=== PATIENT | female | born 1985 | race Caucasian/White ===

== ENCOUNTER → 2021-05-13 14:15 | Outpatient (BNVA) | payer SELFPAY | PROVIDERS: Family Provider Family Medicine; PCP Family Medicine; Visit Provider Obstetrics & Gynecology | DX: N92.6 Irregular menstruation, unspecified (principal) | CPT/HCPCS: 83036; 83525; 84443 ==

== ENCOUNTER → 2021-05-24 08:14 | Outpatient (BNVA) | payer SELFPAY | PROVIDERS: Family Provider Family Medicine; PCP Family Medicine; Visit Provider Obstetrics & Gynecology | DX: N97.9 Female infertility, unspecified (principal); N83.202 Unspecified ovarian cyst, left side; N83.201 Unspecified ovarian cyst, right side; N70.11 Chronic salpingitis | CPT/HCPCS: 76830 ==

== ENCOUNTER → 2021-05-31 13:02 | Outpatient (BNVA) | payer SELFPAY | PROVIDERS: Family Provider Family Medicine; PCP Family Medicine; Visit Provider Obstetrics & Gynecology | DX: N92.6 Irregular menstruation, unspecified (principal); N70.11 Chronic salpingitis | CPT/HCPCS: 84144 ==

== ENCOUNTER 2021-06-08 10:23 | Outpatient (CLI) | payer SELFPAY ==
--- NOTE | 2021-06-08 10:30 | FL_ITS ---
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 Fluoroscopy time: 1.5 minutes. Findings: Dr. Higgins injected the contrast material into the uterine cavity. The uterine cavity had a normal configuration and there were several bubbles within the uterine cavity. The fallopian tubes fill and spill into the pelvis bilaterally. There are surgical clips in the left side of the abdomen and in th e left upper quadrant. There is a large amount of fecal material in the colon. FL/FL hysterosalpingography [id number] Impression: Normal hysterosalpingogram.
[2021-06-08] MEDS: iohexol 300 mg/mL 50 mL Btl VAGINAL (11:17)
--- NOTE | 2021-06-08 12:29 | PM.OP ---
Operative Report Date of procedure: June 08, 2021 Pre-op Diagnosis: bilateral hydrosalpinx Post-op diagnosis: same Post-op Findings: normal appearing fallopian tubes Possible polyp present in the uterus Procedure Done: hysterosalpingogram Pathology: none sent Surgeon: Unique Higgins Anesthesia: None Estimated blood loss (mL): 0 IV fluids (mL): 0 Urine output (mL): 0 Complications: none Findings: normal appearing uterus and fallopian tubes Condition: stable Disposition: other (home after procedure) Brief History: The patient saw me for inability to become . She had an ultrasound which showed bilateral hydrosalpinx. The HSG was scheduled to evaluate the patient's fallopian tubes Procedure: The patient was placed in the dorsal lithotomy position on the x-ray table. A speculum was placed into the vagina and the cervix identified. The cervix was cleaned with Betadine. A single-tooth tenaculum was placed on the anterior lip of the cervix. The acorn uterine manipulator was placed through the cervix into the uterus. 25 cc of contrast were drawn up and pushed through the manipulator and into the uterus. Pictures were taken throughout the procedure. The contour of the uterus was normal as well as bilateral tubes were patent. The manipulator was removed and final pictures were taken. The tenaculum and the speculum were removed. The patient tolerated the procedure well. The count was correct post procedure. The patient was discharged home in stable condition.
--- NOTE | 2021-06-08 12:30 | W.PM.OPSUD ---
Surgery/Procedure H&P Update DATE OF PROCEDURE: June 08, 2021 DATE H&P PERFORMED: 05/27/21 H&P UPDATE INFORMATION: I have reviewed H&P completed within last 30 days, I have examined patient prior to procedure and No changes to prior documentation
== END 2021-06-08 10:24 | disposition home or self-care (01) ==
LOC: RAD 10:26
PROVIDERS: PCP Family Medicine; Visit Provider Obstetrics & Gynecology
DX: N70.11 Chronic salpingitis (principal)
CPT/HCPCS: 74740

== ENCOUNTER 2022-03-10 07:30 | Outpatient (CLI) | payer SELFPAY ==
[2022-03-10 09:01] LABS: Progesterone 42.69 ng/mL
== END 2022-03-10 07:31 | disposition home or self-care (01) ==
PROVIDERS: PCP Family Medicine; Visit Provider Obstetrics & Gynecology Reproductive Endocrinology
DX: N91.2 Amenorrhea, unspecified (principal)
CPT/HCPCS: 36415; 84144; 84702

== ENCOUNTER 2022-03-13 07:49 | Outpatient (CLI) | payer SELFPAY ==
[2022-03-13 09:02] LABS: Progesterone 38.91 ng/mL
== END 2022-03-13 07:50 | disposition home or self-care (01) ==
LOC: LAB 07:51
PROVIDERS: PCP Family Medicine; Visit Provider Obstetrics & Gynecology Reproductive Endocrinology
DX: N91.2 Amenorrhea, unspecified (principal)
CPT/HCPCS: 36415; 84144; 84702

== ENCOUNTER 2023-01-19 07:55 | Inpatient (IN) | payer MEDICAID, SELFPAY ==
[2023-01-19] VITALS (10 sets, daily range): BP systolic 106–145; BP diastolic 63–89; PULSE 91–110; RESP 16–18; TEMP 36.6–37.7; O2SAT 93–100
--- NOTE | 2023-01-19 08:06 | W.ED.ABDPA2 ---
HPI - Abdominal Pain General: Chief Complaint: ER Hold Stated Complaint: abd pain Time Seen by Provider: 01/19/23 08:05 History of Present Illness: Ms. Young is a 37-year-old lady with significant past medical history of gastric sleeve/bypass presenting to the emergency department for abdominal pain with nausea, vomiting, diarrhea. Notes onset of symptoms subacute a few days ago. She felt nauseous and had vomiting and subsequently developed abdominal pain. Mostly lower abdomen with radiation to the right side. Moderate to severe intensity. Crampy in nature. Initially just had vomiting however subsequently has developed diarrhea. No hematemesis or blood in stool. No fevers. No urinary symptoms. Patient reports being and has resumed normal periods. Last period was earlier this week. Denies abnormal vaginal bleeding or discharge/pain. No other specific changes in health, exacerbating, or alleviating factors identified. Onset (ago): day(s) Pain Consistency: constant Location: Diffuse Quality: cramping Exacerbating factors: eating, vomiting and movement Relieving factors: nothing Associated Symptoms: Reports GI cramping, nausea, poor appetite and vomiting; Denies dysuria, fever(s), hematemesis and melena Review of Systems General: Reports: 10 or more systems reviewed and unremarkable except in HPI and below Const: Denies: fever(s) GI: Reports: nausea, vomiting and GI cramping; Denies: hematemesis or melena : Denies: dysuria PFSH ED PFSH: Medical History Anxiety Depression MTHFR mutation Surgical History H/O gastric bypass 2015--pt had complications with the sleeve so was converted to the bypass H/O gastric sleeve 2015 Family History Grandmother Cancer Paternal--brain Diabetes Paternal Father Diabetes Hypertension Mother Hypertension Denies family history of CAD (coronary artery disease) Clotting disorder Hyperlipidemia Chronic kidney disease (CKD) Bleeding disorder Stroke Physical Exam Const: COMMON NORMALS: alert GENERAL APPEARANCE: cooperative and well developed HENMT: COMMON NORMALS: normocephalic and atraumatic HEAD & SCALP: normocephalic and atraumatic Eye: COMMON NORMALS: conjunctivae normal CONJUNCTIVA: Yes conjunctivae normal SCLERA: sclerae normal Neck/C-Spine: COMMON NORMALS: supple GENERAL: Yes trachea midline Resp: COMMON NORMALS: clear to auscultation bilaterally EFFORT & INSPECTION: Yes able to speak in complete sentences AUSCULTATION: clear to auscultation bilaterally Cardio: COMMON NORMALS: regular rate and regular rhythm RATE: regular rate RHYTHM: regular rhythm GI: COMMON NORMALS: Soft to palpation PALPATION: Yes Soft to palpation, Yes Tenderness to palpation present (GI), No Guarding due to palpation present (GI) and No Rigid due to palpation Extremity: GENERAL: Yes normal exam except as noted and No edema Neuro: COMMON NORMALS: moves all extremities SENSORIUM/ORIENTATION: Yes alert and No Orientation impaired Psych: COMMON NORMALS: mental status grossly normal and Normal thought process present THOUGHT PROCESS: Normal thought process present Course Vital Signs: Vital signs: Vital Signs Temperature 98 F 01/21/23 07:44 Pulse Rate 71 01/21/23 07:44 Respiratory Rate 18 01/21/23 07:44 Blood Pressure 125/85 01/21/23 07:44 Pulse Oximetry 95 01/21/23 07:44 Oxygen Delivery Me thod Room Air 01/21/23 07:44 MDM - Abdominal Pain Medical Decision Making 37-year-old lady presenting with abdominal pain with nausea, vomiting, diarrhea. Uncomfortable appearing on exam though nontoxic. Abdominal tenderness without evidence of acute surgical abdomen. Labs notable for no leukocytosis, normal hemoglobin and platelet count metabolic panel without significant arrangement. Given degree of tenderness despite laboratory findings CT imaging is appropriate. There appears to be acute inflammatory process in the right lower quadrant without clear etiology though raising the question for possible acute appendicitis. General surgery consulted and came to evaluate the patient. Given imaging findings plan to admit to medicine for antibiotic treatment with general surgery as consult service. During ED course patient treated with fluids, analgesia, antiemetic, antibiotics. The results of ED evaluation were discussed with the patient including plan for admission due to requirement for level of care not available if discharged to prevent significant worsening/deterioration. Patient agreeable with plan. Discussed with hospitalist service who was agreeable to admit patient. Medical Records I reviewed the patient's medical records. Lab Data I reviewed the patient's lab results. 01/21/23 04:19 01/21/23 04:19 Labs/Radiology: Radiology Impressions Abdomen/Pelvis CT 01/19/23 08:49 IMPRESSION: 1. Acute inflammatory process in the RIGHT lower quadrant. A normal identifiable appendix is not present. There are several abnormal loops of GI tract in the RIGHT lower quadrant. Favor one of these is an abnormal appendix with possible perforation. The adjacent small bowel loops are being secondarily involved with inflammation. There is soft tissue and fat stranding extending along the RIGHT paracolic gutter. Most likely acute appendicitis. 2. No free fluid and no free air. 3. There is a small amount of inflammation involving the fundal portion of the gallbladder. Suspect this may be inflammation from the RIGHT lower quadrant process extending superiorly. Additional etiologies to consider are possible superimposed acute cholecystitis. 4. Prior gastric bypass. Laboratory Results WBC 8.7 10^3/uL (4.0-10.0) 01/19/23 08:07 RBC 4.45 10^6/uL (4.1-5.3) 01/19/23 08:07 Hgb 11.7 g/dL (11.5-15.3) 01/19/23 08:07 Hct 37.7 % (37.0-47.0) 01/19/23 08:07 MCV 84.7 fl (81-99) 01/19/23 08:07 MCH 26.3 pg (28.0-34.0) L 01/19/23 08:07 MCHC 31.0 g/dL (30.0-36.0) 01/19/23 08:07 RDW 14.1 % (12.1-15.1) 01/19/23 08:07 Plt Count 362 10^3/cmm (130-400) 01/19/23 08:07 MPV 10.6 fL (7.4-10.4) H 01/19/23 08:07 Neut % (Auto) 80.5 % 01/19/23 08:07 Lymph % (Auto) 12.0 % 01/19/23 08:07 [place] % (Auto) 6.3 % 01/19/23 08:07 Eos % (Auto) 0.5 % 01/19/23 08:07 Baso % (Auto) 0.5 % 01/19/23 08:07 Neut # (Auto) 7.02 10^3/uL (1.8-7.7) 01/19/23 08:07 Lymph # (Auto) 1.1 10^3/uL (0.8-4.8) 01/19/23 08:07 [place] # (Auto) 0.6 10^3/uL (0.2-0.9) 01/19/23 08:07 Eos # (Auto) 0.0 10^3/uL (0.0-0.8) 01/19/23 08:07 Baso # (Auto) 0.0 10^3/uL (0.0-0.1) 01/19/23 08:07 Nucleated RBC % (auto) 0 % 01/19/23 08:07 Nucleated RBCs # 0.0 /100WBC 01/19/23 08:07 Sodium 138 mmol/L (136-145) 01/19/23 08:07 Potassium 3.7 mmol/L (3.5-5.1) 01/19/23 08:07 Chloride 100 mmol/L (98-107) 01/19/23 08:07 Carbon Dioxide 25 mmol/L (22-29) 01/19/23 08:07 Anion Gap 16.7 (5-19) 01/19/23 08:07 BUN 10 mg/dL (6-20) 01/19/23 08:07 Creatinine 0.6 mg/dL (0.5-0.9) 01/19/23 08:07 GFR Calculation 113.8 mL/min (90-130) 01/19/23 08:07 Glucose 89 mg/dL (65-115) 01/19/23 08:07 Calculated Osmolality 285 mOsm/kg (285-295) 01/19/23 08:07 Calcium 8.9 mg/dL (8.5-10.5) 01/19/23 08:07 Total Bilirubin 0.4 mg/dL (0.15-1.2) 01/19/23 08:07 AST 14 U/L (0-32) 01/19/23 08:07 ALT 18 U/L (0-33) 01/19/23 08:07 Alkaline Phosphatase 69 U/L (35-105) 01/19/23 08:07 Total Protein 7.0 g/dL (6.6-8.7) 01/19/23 08:07 Albumin 3.8 g/dL (3.5-5.2) 01/19/23 08:07 Globulin 3.2 g/dL (1.3-4.6) 01/19/23 08:07 Lipase 18 U/L (13-60) 01/19/23 08:07 HCG, Qual Negative (Negative) 01/19/23 08:07 Urine Color Yellow (Yellow) 01/19/23 09:08 Urine Appearance Hazy (CLEAR) A 01/19/23 09:08 Urine pH 6.5 (5-7) 01/19/23 09:08 Ur Specific Joseph 1.010 (1.005-1.030) 01/19/23 09:08 Urine Protein Neg (Negative) 01/19/23 09:08 Urine Glucose (UA) Norm (Normal) 01/19/23 09:08 Urine Ketones 3+ (Negative) H 01/19/23 09:08 Urine Blood 3+ (Negative) H 01/19/23 09:08 Urine Nitrate Negative (Negative) 01/19/23 09:08 Urine Bilirubin 1+ (Negative) H 01/19/23 09:08 Urine Urobilinogen 4 mg/dL (Negative) H 01/19/23 09:08 Ur Leukocyte Esterase Negative (Negative) 01/19/23 09:08 Urine RBC 15-25 /hpf (0-2) H 01/19/23 09:08 Urine WBC 0-4 /hpf (0-5) H 01/19/23 09:08 Ur Squamous Epith Cells 5-10 /hpf (0-5) H 01/19/23 09:08 Amorphous Sediment Not Reportable 01/19/23 09:08 Urine Bacteria 1+ /hpf (NONE) H 01/19/23 09:08 Urine Mucus 1+ /hpf 01/19/23 09:08 Discharge Plan Discharge Patient Disposition: Admitted As Inpatient Admit Provider: Aura De Oliveira Clinical Impression: Abdominal pain Condition: Stable Discharge Diet: Advance as tolerated and Usual diet Discharge Activity: Resume usual activity Coding Level of Care Code ED Behavioral Health Therapist for Radu Henning
[2023-01-19] MEDS: morphine 4 mg/mL SDV 1 mL IVP ×3 (08:17→15:04)
[2023-01-19] MEDS: ondansetron 2 mg/ML SDV 2 mL 4 MG IVP (08:17)
[2023-01-19] MEDS: lactated ringers 1,000 ML 999 ML IV (08:18)
[2023-01-19 08:19] LABS: Basophils % 0.5 %; Eosinophils % 0.5 %; Hematocrit 37.7 % (37.0-47.0); Hemoglobin 11.7 g/dL (11.5-15.3); Lymphocytes # 1.1 10^3/uL (0.8-4.8); Mean Corpuscular Hemoglobin 26.3 pg (28.0-34.0); Mean Corpuscular Volume 84.7 fl (81-99); Mean Platelet Volume 10.6 fL (7.4-10.4); Monocytes # 0.6 10^3/uL (0.2-0.9); Monocytes % 6.3 %; Neutrophils # 7.02 10^3/uL (1.8-7.7); Neutrophils % 80.5 %; Nucleated Red Blood Cells % 0 %; Platelet Count 362 10^3/cmm (130-400); Red Blood Count 4.45 10^6/uL (4.1-5.3); Red Cell Distribution Width 14.1 % (12.1-15.1); White Blood Count 8.7 10^3/uL (4.0-10.0)
[2023-01-19 08:29] LABS: Alanine Aminotransferase 18 U/L (0-33); Albumin Level 3.8 g/dL (3.5-5.2); Alkaline Phosphatase 69 U/L (35-105); Anion Gap 16.7 (5-19); Aspartate Amino Transferase 14 U/L (0-32); Blood Urea Nitrogen 10 mg/dL (6-20); Calcium 8.9 mg/dL (8.5-10.5); Carbon Dioxide 25 mmol/L (22-29); Chloride 100 mmol/L (98-107); Globulin 3.2 g/dL (1.3-4.6); Glomerular Filtration Rate 113.8 mL/min (90-130); Glucose 89 mg/dL (65-115); Lipase 18 U/L (13-60); Osmolality Calculated 285 mOsm/kg (285-295); Potassium 3.7 mmol/L (3.5-5.1); Sodium 138 mmol/L (136-145); Total Bilirubin 0.4 mg/dL (0.15-1.2)
[2023-01-19 08:33] LABS: HCG, Serum Qual Negative (Negative)
--- NOTE | 2023-01-19 08:49 | CT_ITS ---
WS: [id number] CT ABDOMEN AND PELVIS WITH CONTRAST HISTORY: generalized abd pain, worse RLQ TECHNIQUE: Imaging performed of the abdomen and pelvis with IV contrast. Single phase imaging of the abdomen. Coronal and sagittal reformats are submitted. All CT scans at [facility] use at [address] one of these dose optimization techniques: automated exposure control; mA and/or kV adjustment per patient size (includes targeted exams where dose is matched to clinical indication); or iterative re construction. IV CONTRAST: Omnipaque 350; 100 mL IV. Oral contrast: No DLP: 772.67 mGy.cm COMPARISON: None available. Lower thorax: Lung bases are clear. Heart is normal size. No hiatal hernia. Liver/biliary system: Mild hepatic steatosis and hepatomegaly. No bile duct dilatation. No mass. Gallbladder: Mildly hydropic gallbladder. There is some very mild fat stranding along the fundal port ion of the gallbladder. There is a tiny calcification within the wall of the gallbladder. No pancreat ic duct dilatation. Pancreas: Normal size pancreas and pancreatic duct. No adjacent inflammation. Spleen: Normal size spleen. No mass or infarct. Adrenal glands: Normal. Right kidney: Normal. Left kidney: Normal. Aorta: Normal. Lymphadenopathy: None. Free fluid: None. GI tract: Status post gastric bypass. No small bowel obstruction. Acute inflammatory process in the R IGHT lower quadrant. There are several abnormal loops of GI tract in the RIGHT lower quadrant. There is wall thickening with moderate adjacent inflammation and narrowing of the lumen. The appendix is no t identified as a normal structure. There is one loop of GI tract which I believe is an abnormal appe ndix and possible perforation. There is a small interloop collection measuring 1.7 cm which may be a small abscess or phlegmonous. The adjacent distal small bowel loops are also inflamed. Mesenteric inf lammation extends superiorly and I believe is contiguous with the fat inferior to the gallbladder. Th ere is no free fluid. Abdominal wall: Unremarkable abdominal wall. No hernia. Pelvis: No free fluid identified. Bones: Unremarkable. CT/CT abdomen pelvis w con* [id number] IMPRESSION: 1. Acute inflammatory process in the RIGHT lower quadrant. A normal identifiab le appendix is not present. There are several abnormal loops of GI tract in the RIGHT lower quadrant. Favor one of these is an abnormal appendix with possible perforation. The adjacent small bowel loops are being secondarily involved wit h inflammation. There is soft tissue and fat stranding extending along the RIGH T paracolic gutter. Most likely acute appendicitis. 2. No free fluid and no free air. 3. There is a small amount of inflammation involving the fundal portion of the gallbladder. Suspect this may be inflammation from the RIGHT lower quadrant pr ocess extending superiorly. Additional etiologies to consider are possible supe rimposed acute cholecystitis. 4. Prior gastric bypass.
[2023-01-19] MEDS: iohexol 350 mg/mL 500 mL Btl (per mL) IV (09:30)
[2023-01-19 09:33] LABS: Urine Appearance Hazy (CLEAR); Urine Color Yellow (Yellow)
[2023-01-19 09:34] LABS: Add Urine Culture? Yes; Add Urine Microscopic? YES; Bacteria Urine 1+ /hpf; Bilirubin Urine 1+ (Negative); Blood Urine 3+ (Negative); Glucose Urine UA Norm (Normal); Ketones Urine 3+ (Negative); Leukocyte Esterase Urine Negative (Negative); Mucus Urine 1+ /hpf; Nitrate Urine Negative (Negative); Protein Urine Neg (Negative); RBC Urine 15-25 /hpf (0-2); Urobilinogen Urine 4 mg/dL (Negative); WBC Urine 0-4 /hpf (0-5); pH Urine 6.5 (5-7)
[2023-01-19] MEDS: piperacillin-tazobactam 4.5 GM in sodium chloride 0.9% (plus) 50 ML IV (10:23)
[2023-01-19] MEDS: sodium chloride 0.9% 1,000 ML 100 ML IV ×2 (15:04→23:31)
[2023-01-19 17:47] LABS: Lactic Sepsis W/Reflex 0.5 mmol/L (0.5-2.2)
--- NOTE | 2023-01-19 18:15 | PM.CONSULT ---
Providers/Reason For Consult Consulting Physician/Specialty*: General Surgery Reason for Consult*: Abdominal pain Attending Physician: Aura De Oliveira MD Primary Care Provider: Chandana Alvarez MD History of Present Illness History of Present Illness Tayler Young is a 37 year old female who developed significant abdominal pain last weekend, which gradually stabilized but persistent. She indicates pain in both lower and right upper quadrants, and has had some diarrhea but no hematochezia or melena. She has previous history of laparoscopic gastric bypass four years ago, and has achieved reasonable weight loss from this procedure. Review of Systems General: Reports: 10 or more systems reviewed and unremarkable except in HPI and below Const: Reports: change in weight; Denies: chills Eyes: Denies: yellow eyes Card: Denies: chest pain, lightheadedness or syncope Resp: Denies: dyspnea GI: Reports: abdominal pain, nausea and diarrhea; Denies: vomiting or melena : Denies: flank pain or hematuria Neuro: Denies: headache(s) Medications/Allergies Home Medications Medication Instructions Recorded Confirmed Last Taken Type prenat.vits,anu,kbb-zglm-vqjai 1 tab PO DAILY 05/13/21 01/19/23 01/18/23 History bupropion HCl 300 mg 24 hr tablet, 300 mg PO DAILY 01/19/23 01/19/23 01/18/23 History extended release escitalopram oxalate 10 mg tablet 10 mg PO DAILY 01/19/23 01/19/23 01/18/23 History norgestimate-ethinyl estradiol 1 tab PO DAILY 01/19/23 01/19/23 01/18/23 History 0.18 mg/0.215mg/0.25mg-35 mcg(28)tablet (Tri-Sprintec (28)) ondansetron 4 mg disintegrating 8 mg PO TID PRN Nausea And Vomiting 01/19/23 01/19/23 Unknown History tablet Allergies Allergy/AdvReac Type Severity Reaction Status Date / Time No Known Allergies Allergy Verified 01/19/23 08:04 Current Medications Generic Name Dose Route Start Last Admin Trade Name Freq PRN Reason Stop Dose Admin Sodium Chloride 1,000 mls @ 100 mls/hr 01/19/23 12:30 01/19/23 15:04 Sodium Chloride 0.9% IV 100 mls/hr .Q10H SAMIRA Administration PFSH Acute PFSH: Medical History Anxiety Depression MTHFR mutation Surgical History H/O gastric bypass 2015--pt had complications with the sleeve so was converted to the bypass H/O gastric sleeve 2015 Family History Grandmother Cancer Paternal--brain Diabetes Paternal Father Diabetes Hypertension Mother Hypertension Denies family history of CAD (coronary artery disease) Clotting disorder Hyperlipidemia Chronic kidney disease (CKD) Bleeding disorder Stroke Vitals/I&O/Wt Last Vital Signs Temp 98 F 01/19/23 16:45 Pulse 93 01/19/23 16:45 Resp 18 01/19/23 16:45 BP 135/85 01/19/23 16:45 Pulse Ox 98 01/19/23 16:45 O2 Del Method Room Air 01/19/23 16:45 Weight last 48 hrs Weight 220 lb Physical Exam Narrative: WDWN female in mild distress due to abdominal pain Const: COMMON NORMALS: patient oriented x3 and alert HENMT: COMMON NORMALS: normocephalic and oropharynx normal HEAD & SCALP: normocephalic Eye: COMMON NORMALS: Equal, round and reactive pupils present, EOMs intact bilaterally and no scleral icterus PUPIL: Yes Equal, round and reactive pupils present Neck/C-Spine: COMMON NORMALS: full ROM and supple Resp: COMMON NORMALS: normal respiratory effort and clear to auscultation bilaterally AUSCULTATION: clear to auscultation bilaterally Cardio: COMMON NORMALS: regular rhythm and No murmurs present (Cardio) RHYTHM: regular rhythm GI: AUSCULTATION: Yes Hypoactive bowel sounds present PALPATION: Yes Tenderness to palpation present (GI) Details: RLQ, No Rigid due to palpation and No Rebound tenderness present : COMMON NORMALS: Yes no CVA tenderness BLADDER/KIDNEY EXAM: Yes no CVA tenderness Back/Pelvis: COMMON NORMALS: no CVA tenderness Neuro: COMMON NORMALS: patient oriented x3, CN's II-XII intact bilaterally, no focal motor deficits and no sensory deficits noted SENSORIUM/ORIENTATION: Yes alert Psych: COMMON NORMALS: mental status grossly normal, cooperative and normal affect Data 01/19/23 08:07 01/19/23 08:07 A&P Assessment and plan (1) Abdominal pain: Plan: presentation here without leukocytosis and with hematuria is at least confusing. I simply don't know how to explain the CT findings currently, and would agree with a trial of wide-spectrum antibiotics. Even if this presentation is due to appendicitis, it is within the current standard of care to defer laparoscopy and to follow the patient on antibiotics by physical exam, clinical progress, and serial laboratory assessment. Will continue to follow closely with the understanding that laparoscopy would be my next consideration. Coding Level of Care Code G0426 (50 min) Diagnoses Abdominal pain R10.9
[2023-01-19] MEDS: enoxaparin 40 mg/0.4 mL Syringe SUBCUT (18:26)
[2023-01-19] MEDS: piperacillin-tazobactam 3.375 GM in sodium chloride 0.9% (plus) 50 ML IV (18:26)
[2023-01-19] MEDS: morphine 4 mg/mL SDV 1 mL 2 MG IVP (19:12)
--- NOTE | 2023-01-19 23:19 | P.HP_ITS ---
Providers/Chief Complaint Admitting Physician: Aura De Oliveira MD Primary Care Provider: Chandana Alvarez MD Chief Complaint: abd pain History of Present Illness Tayler Young is a 37 year old female who is currently 2 months post after normal vaginal delivery without complications. She started to develop lower abdominal pain localizing thereafter to the right side of her abdomen on Sunday (today is sunday), witrh symptoms worsening since yesterday. She developed additional symptoms of diarrhea and vomiting which prompted her ER visit today. no fever. no recent lenore complications. Delivery was uneventful at [facility]. she underwent ivf treatments to conceive. she has had on and off vaginal spotting since her delivery. no hematuria. 6 week PP OB visit without concerns per patient. she is not currently breast feeding CT abdomen shows RLQ inflammatory changes suspected to be acute appendicitis. [facility] lap band surgery 2019 Review of Systems General: Reports: 10 or more systems reviewed and unremarkable except in HPI and below Const: Denies: fever(s), chills or body aches Eyes: Denies: change in vision, blurry vision or photophobia ENMT: Reports: hoarseness; Denies: throat pain, enlarged tonsils, odynophagia or nasal congestion Card: Denies: chest pain, palpitations, irregular heart rhythm, edema, swelling of feet/ankles, lightheadedness, pre-syncope, dyspnea on exertion or orthopnea Resp: Denies: dyspnea, productive cough, non-productive cough, wheezing, stridor, pain on inspiration, change in phlegm color, hemoptysis or chest congestion GI: Denies: abdominal pain, nausea, vomiting, hematemesis, coffee ground emesis, dysphagia, heartburn, diarrhea, constipation, GI cramping, change in stool character, hematochezia or melena : Denies: flank pain, difficulty voiding, dysuria, urinary frequency, urinary urgency, urinary hesitancy or hematuria Musc: Denies: neck pain, back pain, extremity pain, joint swelling, joint warmth or deformity Neuro: Denies: headache(s), numbness in extremities, weakness in extremities, sensory changes, difficulty walking, frequent falls, dizziness, vertigo, behavioral changes, Slurred speech present or seizure-like activity Psych: Denies: anxiety, depression, suicidal ideation or homicidal ideation Endo: Denies: polyuria, polydipsia, tired all the time, cold intolerance or h ot flashes Bruce/Lymph: Denies: easy bruising or easy bleeding Medications/Allergies Home Medications Medication Instructions Recorded Confirmed Last Taken Type prenat.vits,anu,uwp-jrkz-pljwy 1 tab PO DAILY 05/13/21 01/19/23 01/18/23 History bupropion HCl 300 mg 24 hr tablet, 300 mg PO DAILY 01/19/23 01/19/23 01/18/23 History extended release escitalopram oxalate 10 mg tablet 10 mg PO DAILY 01/19/23 01/19/23 01/18/23 History norgestimate-ethinyl estradiol 1 tab PO DAILY 01/19/23 01/19/23 01/18/23 History 0.18 mg/0.215mg/0.25mg-35 mcg(28)tablet (Tri-Sprintec (28)) ondansetron 4 mg disintegrating 8 mg PO TID PRN Nausea And Vomiting 01/19/23 01/19/23 Unknown History tablet Allergies Allergy/AdvReac Type Severity Reaction Status Date / Time No Known Allergies Allergy Verified 01/19/23 08:04 PFSH Acute PFSH: Medical History Anxiety Depression MTHFR mutation Surgical History H/O gastric bypass 2015--pt had complications with the sleeve so was converted to the bypass H/O gastric sleeve 2015 Family History Grandmother Cancer Paternal--brain Diabetes Paternal Father Diabetes Hypertension Mother Hypertension Denies family history of CAD (coronary artery disease) Clotting disorder Hyperlipidemia Chronic kidney disease (CKD) Bleeding disorder Stroke Vitals/I&O/Wt Last Vital Signs Temp 98.7 F 01/19/23 19:44 Pulse 97 01/19/23 19:44 Resp 16 01/19/23 19:44 BP 106/63 01/19/23 19:44 Pulse Ox 93 01/19/23 19:44 O2 Del Method Room Air 01/19/23 19:44 01/19/23 01/19/23 01/20/23 14:59 22:59 06:59 Intake Total 1100 / 1100 Balance 1100 / 1100 Weight last 48 hrs Weight 99.79 kg Physical Exam Narrative: General: No acute distress, AO x3 HEENT: PERRLA, pupils bilaterally equal and reactive, pallors not present Chest: Normal vesicular breath sounds, no added sounds, equal good air entry bilaterally CVS: S1-S2 regular, no murmurs, no tachycardia, no gallops, no rubs Abdomen: Soft, nontender, no organomegaly, bowel sounds present Neuro: No focal deficits, no facial deformity, AO x3, power 5/5 in all limbs Data 01/20/23 04:54 01/20/23 04:54 Other data: Radiology Impressions Abdomen/Pelvis CT 01/19/23 08:49 IMPRESSION: 1. Acute inflammatory process in the RIGHT lower quadrant. A normal i dentifiable appendix is not present. There are several abnormal loops of GI tract in the RIGHT lower quadrant. Favor one of these is an abnormal appendix with possible perforation. The adjacent small bowel loops are being secondarily involved with inflammation. There is soft tissue and fat stranding extending along the RIGHT paracolic gutter. Most likely acute appendicitis. 2. No free fluid and no free air. 3. There is a small amount of inflammation involving the fundal portion of the gallbladder. Suspect this may be inflammation from the RIGHT lower quadrant process extending superiorly. Additional etiologies to consider are possible superimposed acute cholecystitis. 4. Prior gastric bypass. Laboratory Results WBC 8.7 10^3/uL (4.0-10.0) 01/19/23 08:07 RBC 4.45 10^6/uL (4.1-5.3) 01/19/23 08:07 Hgb 11.7 g/dL (11.5-15.3) 01/19/23 08:07 Hct 37.7 % (37.0-47.0) 01/19/23 08:07 MCV 84.7 fl (81-99) 01/19/23 08:07 MCH 26.3 pg (28.0-34.0) L 01/19/23 08:07 MCHC 31.0 g/dL (30.0-36.0) 01/19/23 08:07 RDW 14.1 % (12.1-15.1) 01/19/23 08:07 Plt Count 362 10^3/cmm (130-400) 01/19/23 08:07 MPV 10.6 fL (7.4-10.4) H 01/19/23 08:07 Neut % (Auto) 80.5 % 01/19/23 08:07 Lymph % (Auto) 12.0 % 01/19/23 08:07 [place] % (Auto) 6.3 % 01/19/23 08:07 Eos % (Auto) 0.5 % 01/19/23 08:07 Baso % (Auto) 0.5 % 01/19/23 08:07 Neut # (Auto) 7.02 10^3/uL (1.8-7.7) 01/19/23 08:07 Lymph # (Auto) 1.1 10^3/uL (0.8-4.8) 01/19/23 08:07 [place] # (Auto) 0.6 10^3/uL (0.2-0.9) 01/19/23 08:07 Eos # (Auto) 0.0 10^3/uL (0.0-0.8) 01/19/23 08:07 Baso # (Auto) 0.0 10^3/uL (0.0-0.1) 01/19/23 08:07 Nucleated RBC % (auto) 0 % 01/19/23 08:07 Nucleated RBCs # 0.0 /100WBC 01/19/23 08:07 Sodium 138 mmol/L (136-145) 01/19/23 08:07 Potassium 3.7 mmol/L (3.5-5.1) 01/19/23 08:07 Chloride 100 mmol/L (98-107) 01/19/23 08:07 Carbon Dioxide 25 mmol/L (22-29) 01/19/23 08:07 Anion Gap 16.7 (5-19) 01/19/23 08:07 BUN 10 mg/dL (6-20) 01/19/23 08:07 Creatinine 0.6 mg/dL (0.5-0.9) 01/19/23 08:07 GFR Calculation 113.8 mL/min (90-130) 01/19/23 08:07 Glucose 89 mg/dL (65-115) 01/19/23 08:07 Calculated Osmolality 285 mOsm/kg (285-295) 01/19/23 08:07 Lactic Acid 0.5 mmol/L (0.5-2.2) 01/19/23 17:19 Calcium 8.9 mg/dL (8.5-10.5) 01/19/23 08:07 Total Bilirubin 0.4 mg/dL (0.15-1.2) 01/19/23 08:07 AST 14 U/L (0-32) 01/19/23 08:07 ALT 18 U/L (0-33) 01/19/23 08:07 Alkaline Phosphatase 69 U/L (35-105) 01/19/23 08:07 Total Protein 7.0 g/dL (6.6-8.7) 01/19/23 08:07 Albumin 3.8 g/dL (3.5-5.2) 01/19/23 08:07 Globulin 3.2 g/dL (1.3-4.6) 01/19/23 08:07 Lipase 18 U/L (13-60) 01/19/23 08:07 HCG, Qual Negative (Negative) 01/19/23 08:07 Urine Color Yellow (Yellow) 01/19/23 09:08 Urine Appearance Hazy (CLEAR) A 01/19/23 09:08 Urine pH 6.5 (5-7) 01/19/23 09:08 Ur Specific [place] 1.010 (1.005-1.030) 01/19/23 09:08 Urine Protein Neg (Negative) 01/19/23 09:08 Urine Glucose (UA) Norm (Normal) 01/19/23 09:08 Urine Ketones 3+ (Negative) H 01/19/23 09:08 Urine Blood 3+ (Negative) H 01/19/23 09:08 Urine Nitrate Negative (Negative) 01/19/23 09:08 Urine Bilirubin 1+ (Negative) H 01/19/23 09:08 Urine Urobilinogen 4 mg/dL (Negative) H 01/19/23 09:08 Ur Leukocyte Esterase Negative (Negative) 01/19/23 09:08 Urine RBC 15-25 /hpf (0-2) H 01/19/23 09:08 Urine WBC 0-4 /hpf (0-5) H 01/19/23 09:08 Ur Squamous Epith Cells 5-10 /hpf (0-5) H 01/19/23 09:08 Amorphous Sediment Not Reportable 01/19/23 09:08 Urine Bacteria 1+ /hpf (NONE) H 01/19/23 09:08 Urine Mucus 1+ /hpf 01/19/23 09:08 A&P Assessment and plan (1) Appendicitis: Patient p/w 5-6 days of abdominal pain progressing to also include diarrhea, nausea and vomiting. CT abdomen with inflammatory changes most likely c/w acute appendicitis B hcg negative, no recent peripartum complications IVF NS @ 100 cc/hr NPO for bowel rest, possible surgery Gen/surg consult Empiric piperacillin- tazobactam 4.5 gm iv every 8 hrs UA + for blood, likely related to recent period bleeding,lochia.No noticeable gross hematuria Attestations Medical Necessity Statement*: Anticipate > 2 midnight admission for management of acute appendicitis, surgical assessment Coding Level of Care Code Acute Code for Chg Fwd Moderate MDM includes number and complexity of problems actively addressed during encounter, amount and/or complexity of data reviewed/ordered and described risk of complication, morbidity or mortality of management as documented Diagnoses Appendicitis K37
[2023-01-20] VITALS (10 sets, daily range): BP systolic 101–132; BP diastolic 61–80; PULSE 82–95; RESP 16–18; TEMP 36.8–37.4; O2SAT 93–97
[2023-01-20] MEDS: piperacillin-tazobactam 3.375 GM in sodium chloride 0.9% (plus) 50 ML IV ×3 (02:26→18:03)
[2023-01-20 05:45] LABS: Basophils % 0.5 %; Eosinophils # 0.1 10^3/uL (0.0-0.8); Eosinophils % 1.3 %; Hematocrit 32.7 % (37.0-47.0); Lymphocytes # 0.9 10^3/uL (0.8-4.8); Lymphocytes % 16.4 %; Mean Corpuscular HGB Conc 30.6 g/dL (30.0-36.0); Mean Corpuscular Hemoglobin 25.8 pg (28.0-34.0); Mean Corpuscular Volume 84.5 fl (81-99); Mean Platelet Volume 10.4 fL (7.4-10.4); Monocytes # 0.6 10^3/uL (0.2-0.9); Monocytes % 10.4 %; Neutrophils # 3.89 10^3/uL (1.8-7.7); Nucleated Red Blood Cells % 0 %; Platelet Count 298 10^3/cmm (130-400); Red Blood Count 3.87 10^6/uL (4.1-5.3); White Blood Count 5.5 10^3/uL (4.0-10.0)
[2023-01-20] MEDS: morphine 4 mg/mL SDV 1 mL 2 MG IVP ×4 (06:10→21:00)
[2023-01-20 06:17] LABS: Alanine Aminotransferase 14 U/L (0-33); Alkaline Phosphatase 58 U/L (35-105); Aspartate Amino Transferase 12 U/L (0-32); Blood Urea Nitrogen 8 mg/dL (6-20); Calcium 8.4 mg/dL (8.5-10.5); Carbon Dioxide 24 mmol/L (22-29); Chloride 104 mmol/L (98-107); Creatinine Clr Calc Pharmacy 187.1672; Globulin 2.7 g/dL (1.3-4.6); Glomerular Filtration Rate 140.4 mL/min (90-130); Glucose 71 mg/dL (65-115); Osmolality Calculated 289 mOsm/kg (285-295); Sodium 141 mmol/L (136-145); Total Bilirubin 0.3 mg/dL (0.15-1.2); Total Protein 5.7 g/dL (6.6-8.7)
--- NOTE | 2023-01-20 08:39 | P.PN_ITS ---
Subjective Subjective: I'm better, but I still don't feel great Vitals/I&O/Wt Last Vital Signs Temp 98.3 F 01/20/23 07:12 Pulse 82 01/20/23 07:12 Resp 16 01/20/23 07:12 BP 109/71 01/20/23 07:12 Pulse Ox 95 01/20/23 07:12 O2 Del Method Room Air 01/20/23 07:12 01/19/23 01/20/23 01/20/23 22:59 06:59 14:59 Intake Total 1100 / 1100 5 / 1994 Output Total 1100 / 1100 Balance 1100 / 1100 -205 / 895 Weight last 48 hrs Weight 220 lb Physical Exam GI: OTHER: Abdomen is softer, less guarding, and less tenderness. No peritonitis Data 01/20/23 04:54 01/20/23 04:54 A&P Assessment and plan (1) Abdominal pain: See note under #2 below. 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 This patient, with her previous gastric bypass and ongoing dietary non-compliance, is a set-up for this problem. While I cannot fully rule out appendicitis here, I think that the sensitivity of her acute illness to the administration of wide-spectrum antibiotics over the past 24 hours, also points to the diagnosis of afferent loop syndrome. I'm going to allow full liquids today as we continue antibiotics. If she continues to improve, and to tolerate liquids, I think we could continue oral antibiotics to complete a 7-day course on out-patient basis, by tomorrow. Plan: full liquid diet as tolerated. Consider dismissal on oral antibiotics as early as tomorrow. Attestations Medical Necessity Statement*: Acute bacterial infection of the small intestine warranting ongoing IV antibiotic therapy for at least one more midnight. Coding Level of Care Code Acute Code for [facility] Diagnoses Abdominal pain R10.9 Afferent loop syndrome K91.89
[2023-01-20] MEDS: sodium chloride 0.9% 1,000 ML 100 ML IV ×2 (08:40→18:03)
[2023-01-20] MEDS: pantoprazole DR 40 mg Tablet PO (10:20)
--- NOTE | 2023-01-20 10:30 | PM.PN ---
Subjective Subjective: pain is improving today, diet has been advanced to full liquid which she is tolerating today. T max 99.8F Vitals/I&O/Wt Last Vital Signs Temp 98.9 F 01/20/23 20:00 Pulse 84 01/20/23 20:00 Resp 18 01/20/23 21:00 BP 129/78 01/20/23 20:00 Pulse Ox 95 01/20/23 20:00 O2 Del Method Room Air 01/20/23 15:15 01/20/23 01/20/23 01/20/23 06:59 14:59 22:59 Intake Total / 1994 965 / 965 988.333 / 1952.333 Output Total 1100 / 1100 Balance - / 965 / 965 988.333 / 1952.333 Weight last 48 hrs Weight 99.79 kg Physical Exam Narrative: General: No acute distress, AO x3 HEENT: PERRLA, pupils bilaterally equal and reactive, pallors not present Chest: Normal vesicular breath sounds, no added sounds, equal good air entry bilaterally CVS: S1-S2 regular, no murmurs, no tachycardia, no gallops, no rubs Abdomen: Soft, mild tenderness RLQ, no organomegaly, bowel sounds present Neuro: No focal deficits, no facial deformity, AO x3, power 5/5 in all limbs Data 01/20/23 04:54 01/20/23 04:54 Micro: Microbiology 01/19/23 09:08 Urine Culture - Preliminary Urine,Clean Catch A&P Assessment and plan (1) Appendicitis: Patient p/w 5-6 days of abdominal pain progressing to also include diarrhea, nausea and vomiting. CT abdomen with inflammatory changes most likely c/w acute appendicitis B hcg negative, no recent peripartum complications IVF NS @ 100 cc/hr started full liquid diet today which she is tolerating Gen/surg recommendations noted Empiric piperacillin- tazobactam 4.5 gm iv every 8 hrs UA + for blood, likely related to recent period bleeding,lochia.No noticeable gross hematuria Attestations Medical Necessity Statement*: ongoing need for iv abx, monitor adominal exam for serial improvement, advanced diet today Coding Level of Care Code Acute Code for [facility] Diagnoses Appendicitis K37
[2023-01-20] MEDS: enoxaparin 40 mg/0.4 mL Syringe SUBCUT (16:49)
[2023-01-21] VITALS: BP 123/76; PULSE 77; RESP 18; TEMP 36.6; O2SAT 96
[2023-01-21] MEDS: piperacillin-tazobactam 3.375 GM in sodium chloride 0.9% (plus) 50 ML IV (02:23)
[2023-01-21 02:28] VITALS: RESP 20
[2023-01-21] MEDS: morphine 4 mg/mL SDV 1 mL 2 MG IVP (02:28)
[2023-01-21 04:00] VITALS: BP 123/76; PULSE 73; RESP 17; TEMP 36.7; O2SAT 95
[2023-01-21] MEDS: sodium chloride 0.9% 1,000 ML 100 ML IV (04:18)
[2023-01-21 04:30] LABS: Basophils % 0.4 %; Eosinophils # 0.1 10^3/uL (0.0-0.8); Eosinophils % 2.8 %; Hematocrit 32.5 % (37.0-47.0); Hemoglobin 10.2 g/dL (11.5-15.3); Lymphocytes # 1.3 10^3/uL (0.8-4.8); Lymphocytes % 26.5 %; Mean Corpuscular HGB Conc 31.4 g/dL (30.0-36.0); Mean Corpuscular Hemoglobin 26.2 pg (28.0-34.0); Mean Corpuscular Volume 83.5 fl (81-99); Mean Platelet Volume 9.3 fL (7.4-10.4); Monocytes # 0.5 10^3/uL (0.2-0.9); Monocytes % 10.6 %; Neutrophils # 2.96 10^3/uL (1.8-7.7); Neutrophils % 59.5 %; Nucleated Red Blood Cells % 0 %; Platelet Count 289 10^3/cmm (130-400); Red Blood Count 3.89 10^6/uL (4.1-5.3); Red Cell Distribution Width 13.6 % (12.1-15.1)
[2023-01-21 04:51] LABS: Alanine Aminotransferase 12 U/L (0-33); Albumin Level 3.1 g/dL (3.5-5.2); Alkaline Phosphatase 52 U/L (35-105); Anion Gap 12.8 (5-19); Aspartate Amino Transferase 11 U/L (0-32); Blood Urea Nitrogen 4 mg/dL (6-20); Calcium 7.8 mg/dL (8.5-10.5); Carbon Dioxide 25 mmol/L (22-29); Chloride 107 mmol/L (98-107); Creatinine Clr Calc Pharmacy 187.1672; Globulin 2.4 g/dL (1.3-4.6); Glomerular Filtration Rate 140.4 mL/min (90-130); Glucose 83 mg/dL (65-115); Osmolality Calculated 288 mOsm/kg (285-295); Potassium 3.8 mmol/L (3.5-5.1); Sodium 141 mmol/L (136-145); Total Bilirubin 0.2 mg/dL (0.15-1.2); Total Protein 5.5 g/dL (6.6-8.7)
[2023-01-21 07:44] VITALS: BP 125/85; PULSE 71; RESP 18; TEMP 36.6; O2SAT 95
--- NOTE | 2023-01-21 07:54 | PM.DCS ---
Discharge Providers Date of Admission: 01/19/23 12:18 Date of Discharge: January 21, 2023 Attending Provider at Admission: Aura De Oliveira MD Attending Provider at Discharge: Davey Cordero MD Primary Care Provider: Chandana Alvarez MD Diagnoses at Discharge Discharge Diagnosis (1) Afferent loop syndrome: Details from hospital stay: Admitted with a complex and perplexing presentation, including equivocal lab and imaging, and unusual story for acute appendicitis. We elected to treat medically with wide spectrum antibiotic, and patient had an excellent response to this therapy. Based on her presentation and clinical course, I think it may well be more likely that patient had developed acute bacterial growth in an afferent loop of small bowel, which would explain the odd CT presentation and her response to antibiotic Status: Acute Reason for Visit Reason for Visit: abd pain Hospital Course Hospital Course Patient admitted with working diagnosis of acute appendicitis, and started on wide-spectrum antibiotic coverage, which achieved prompt resolution of her symptoms over 48 hours. Physical Exam GI: COMMON NORMALS: Normal to inspection, nondistended, normoactive bowel sounds present, Soft to palpation and non-tender PALPATION: Yes Soft to palpation Discharge Data Studies Completed and Pending Completed Studies During Hospitalization Category Date Time Status CT abdomen pelvis w con* [id number] Stat Cat Scan 01/19/23 08:49 Completed Pending at discharge Category Date Time Status Urine Culture Stat Lab 01/19/23 09:08 Results Radiology Impressions Abdomen/Pelvis CT 01/19/23 08:49 IMPRESSION: 1. Acute inflammatory process in the RIGHT lower quadrant. A normal identifiable appendix is not present. There are several abnormal loops of GI tract in the RIGHT lower quadrant. Favor one of these is an abnormal appendix with possible perforation. The adjacent small bowel loops are being secondarily involved with inflammation. There is soft tissue and fat stranding extending along the RIGHT paracolic gutter. Most likely acute appendicitis. 2. No free fluid and no free air. 3. There is a small amount of inflammation involving the fundal portion of the gallbladder. Suspect this may be inflammation from the RIGHT lower quadrant process extending superiorly. Additional etiologies to consider are possible superimposed acute cholecystitis. 4. Prior gastric bypass. Laboratory Results WBC 5.0 10^3/uL (4.0-10.0) 01/21/23 04:19 RBC 3.89 10^6/uL (4.1-5.3) L 01/21/23 04:19 Hgb 10.2 g/dL (11.5-15.3) L 01/21/23 04:19 Hct 32.5 % (37.0-47.0) L 01/21/23 04:19 MCV 83.5 fl (81-99) 01/21/23 04:19 MCH 26.2 pg (28.0-34.0) L 01/21/23 04:19 MCHC 31.4 g/dL (30.0-36.0) 01/21/23 04:19 RDW 13.6 % (12.1-15.1) 01/21/23 04:19 Plt Count 289 10^3/cmm (130-400) 01/21/23 04:19 MPV 9.3 fL (7.4-10.4) 01/21/23 04:19 Neut % (Auto) 59.5 % 01/21/23 04:19 Lymph % (Auto) 26.5 % 01/21/23 04:19 [place] % (Auto) 10.6 % 01/21/23 04:19 Eos % (Auto) 2.8 % 01/21/23 04:19 Baso % (Auto) 0.4 % 01/21/23 04:19 Neut # (Auto) 2.96 10^3/uL (1.8-7.7) 01/21/23 04:19 Lymph # (Auto) 1.3 10^3/uL (0.8-4.8) 01/21/23 04:19 [place] # (Auto) 0.5 10^3/uL (0.2-0.9) 01/21/23 04:19 Eos # (Auto) 0.1 10^3/uL (0.0-0.8) 01/21/23 04:19 Baso # (Auto) 0.0 10^3/uL (0.0-0.1) 01/21/23 04:19 Nucleated RBC % (auto) 0 % 01/21/23 04:19 Nucleated RBCs # 0.0 /100WBC 01/21/23 04:19 Sodium 141 mmol/L (136-145) 01/21/23 04:19 Potassium 3.8 mmol/L (3.5-5.1) 01/21/23 04:19 Chloride 107 mmol/L (98-107) 01/21/23 04:19 Carbon Dioxide 25 mmol/L (22-29) 01/21/23 04:19 Anion Gap 12.8 (5-19) 01/21/23 04:19 BUN 4 mg/dL (6-20) L 01/21/23 04:19 Creatinine 0.5 mg/dL (0.5-0.9) 01/21/23 04:19 GFR Calculation 140.4 mL/min (90-130) H 01/21/23 04:19 Glucose 83 mg/dL (65-115) 01/21/23 04:19 Calculated Osmolality 288 mOsm/kg (285-295) 01/21/23 04:19 Lactic Acid 0.5 mmol/L (0.5-2.2) 01/19/23 17:19 Calcium 7.8 mg/dL (8.5-10.5) L 01/21/23 04:19 Total Bilirubin 0.2 mg/dL (0.15-1.2) 01/21/23 04:19 AST 11 U/L (0-32) 01/21/23 04:19 ALT 12 U/L (0-33) 01/21/23 04:19 Alkaline Phosphatase 52 U/L (35-105) 01/21/23 04:19 Total Protein 5.5 g/dL (6.6-8.7) L 01/21/23 04:19 Albumin 3.1 g/dL (3.5-5.2) L 01/21/23 04:19 Globulin 2.4 g/dL (1.3-4.6) 01/21/23 04:19 Lipase 18 U/L (13-60) 01/19/23 08:07 HCG, Qual Negative (Negative) 01/19/23 08:07 Urine Color Yellow (Yellow) 01/19/23 09:08 Urine Appearance Hazy (CLEAR) A 01/19/23 09:08 Urine pH 6.5 (5-7) 01/19/23 09:08 Ur Specific [place] 1.010 (1.005-1.030) 01/19/23 09:08 Urine Protein Neg (Negative) 01/19/23 09:08 Urine Glucose (UA) Norm (Normal) 01/19/23 09:08 Urine Ketones 3+ (Negative) H 01/19/23 09:08 Urine Blood 3+ (Negative) H 01/19/23 09:08 Urine Nitrate Negative (Negative) 01/19/23 09:08 Urine Bilirubin 1+ (Negative) H 01/19/23 09:08 Urine Urobilinogen 4 mg/dL (Negative) H 01/19/23 09:08 Ur Leukocyte Esterase Negative (Negative) 01/19/23 09:08 Urine RBC 15-25 /hpf (0-2) H 01/19/23 09:08 Urine WBC 0-4 /hpf (0-5) H 01/19/23 09:08 Ur Squamous Epith Cells 5-10 /hpf (0-5) H 01/19/23 09:08 Amorphous Sediment Not Reportable 01/19/23 09:08 Urine Bacteria 1+ /hpf (NONE) H 01/19/23 09:08 Urine Mucus 1+ /hpf 01/19/23 09:08 Vitals Last Vital Signs Temp 98 F 01/21/23 07:44 Pulse 71 01/21/23 07:44 Resp 18 01/21/23 07:44 BP 125/85 01/21/23 07:44 Pulse Ox 95 01/21/23 07:44 O2 Del Method Room Air 01/21/23 07:44 Discharge Plan Discharge Patient Disposition: Home Condition: Stable Prescriptions: New amoxicillin-pot clavulanate [Augmentin] 500-125 mg tablet 1 tab PO BID Qty: 10 0RF levofloxacin 750 mg tablet 750 mg PO DAILY 5 Days Qty: 5 0RF Continued prenat.vits,anu,yoo-qsqg-xuprs Tablet 1 tab PO DAILY Tri-Sprintec (28) 0.18/0.215/0.25 mg-35 mcg (28) tablet 1 tab PO DAILY ondansetron 4 mg tablet,disintegrating 8 mg PO TID PRN (Reason: Nausea And Vomiting) escitalopram oxalate 10 mg tablet 10 mg PO DAILY bupropion HCl 300 mg tablet extended release 24 hr 300 mg PO DAILY Discharge Orders: Discharge Order (Routine); Ordered 01/21/23 Ordered By: Reed Ford Referrals: Chandana Alvarez MD [Primary Care Provider] - (Call sunday to schedule a follow up appointment for 4-7 days) Discharge Diet: Advance as tolerated and Usual diet Discharge Activity: Resume usual activity Discharge Attestations Time Spent in Discharge Care*: less than 30 min Quality Metrics Clinical Quality Measures [ No reported AMI, CVA or VTE this stay] Coding Level of Care Code Acute Code for Chg Fwd Diagnoses Afferent loop syndrome K91.89
[2023-01-21] MEDS: buPROPion XL (24 HR) 300 mg Tablet PO (08:11)
[2023-01-21] MEDS: escitalopram 10 mg Tablet PO (08:11)
[2023-01-21] MEDS: pantoprazole DR 40 mg Tablet PO (08:11)
== END 2023-01-21 09:22 | disposition home or self-care (01) | DRG 394 ==
LOC: ER 12:17 → ER IP 14:48 → MEDSURG 15:39
PROVIDERS: Admitting Provider Student in an Organized Health Care Education/Training Program; Emergency Provider Emergency Medicine; PCP Family Medicine; Visit Provider Internal Medicine
DX: K91.89 Other postprocedural complications and disorders of digestive system (principal); E72.12 Methylenetetrahydrofolate reductase deficiency; Y83.8 Other surgical procedures as the cause of abnormal reaction of the patient, or of later complication, without mention of misadventure at the time of the procedure; F41.9 Anxiety disorder, unspecified; F32.A Depression, unspecified; Z98.84 Bariatric surgery status; Z91.119 Patient's noncompliance with dietary regimen due to unspecified reason
CPT/HCPCS: 36415; 74177; 80053; 81001; 83605; 83690; 84703; 85025; 87086; 96365; 96372; 96375; 96376; 99285; J1650; J2270; J2405; J2543; J7030; J7120; Q9967

== ENCOUNTER → 2024-07-15 13:55 | Outpatient (BNVA) | payer SELFPAY | PROVIDERS: PCP Family Medicine; Visit Provider Nurse Practitioner Women's Health | DX: N92.6 Irregular menstruation, unspecified (principal) | CPT/HCPCS: 81025; 84702; 86850; 86900 ==

== ENCOUNTER → 2024-07-21 09:17 | Outpatient (BNVA) | payer MEDICAID, SELFPAY | PROVIDERS: PCP Family Medicine; Visit Provider Nurse Practitioner Women's Health | DX: Z34.91 Encounter for supervision of normal pregnancy, unspecified, first trimester (principal); Z3A.01 Less than 8 weeks gestation of pregnancy | CPT/HCPCS: 76801; 76817 ==

== ENCOUNTER → 2024-08-12 11:03 | Outpatient (BNVA) | payer MEDICAID, SELFPAY | PROVIDERS: PCP Family Medicine; Visit Provider Nurse Practitioner Women's Health | DX: Z34.90 Encounter for supervision of normal pregnancy, unspecified, unspecified trimester (principal) | CPT/HCPCS: 80307; 84315; 84443; 85025; 86592; 86762; 86803; 86850; 86900; 87086; 87340; 87491; 87591; 87661; 87806 ==

== ENCOUNTER 2025-02-02 11:00 | Outpatient (CLI) | payer MEDICAID, SELFPAY ==
[2025-02-02 11:00] VITALS: RESP 18; BMI 36.8
[2025-02-02 11:15] VITALS: BP 128/80; PULSE 82
[2025-02-02 11:35] VITALS: BP 113/75; PULSE 99
[2025-02-02 11:57] VITALS: BP 119/75; PULSE 86
== END 2025-02-02 12:05 | disposition home or self-care (01) ==
LOC: OPOB 11:08 → OBGYN 11:08
PROVIDERS: PCP Family Medicine; Visit Provider Family Medicine
DX: O09.529 Supervision of elderly multigravida, unspecified trimester (principal); Z3A.00 Weeks of gestation of pregnancy not specified; R25.2 Cramp and spasm
CPT/HCPCS: 59025; 99211

== ENCOUNTER 2025-02-02 22:11 | Outpatient (CLI) | payer MEDICAID, SELFPAY ==
[2025-02-02] VITALS (7 sets, daily range): BP systolic 118–125; BP diastolic 57–82; PULSE 75–81; TEMP 36.6–36.7; BMI 36.4
== END 2025-02-02 23:44 | disposition home or self-care (01) ==
LOC: OPOB 22:15 → OBGYN 22:16
PROVIDERS: PCP Family Medicine; Visit Provider Family Medicine
DX: O26.899 Other specified pregnancy related conditions, unspecified trimester (principal); Z3A.00 Weeks of gestation of pregnancy not specified; R11.0 Nausea; R51.9 Headache, unspecified; R10.9 Unspecified abdominal pain
CPT/HCPCS: 59025; 99211

== ENCOUNTER 2025-02-07 09:20 | Outpatient (CLI) | payer MEDICAID, SELFPAY ==
[2025-02-07 09:25] VITALS: BMI 36.3
[2025-02-07 09:35] VITALS: BP 120/82; PULSE 98
[2025-02-07 09:55] VITALS: BP 119/75; PULSE 84
== END 2025-02-07 10:20 | disposition home or self-care (01) ==
LOC: OPOB 09:26 → OBGYN 09:27
PROVIDERS: PCP Family Medicine; Visit Provider Family Medicine
DX: O36.8190 Decreased fetal movements, unspecified trimester, not applicable or unspecified (principal); Z3A.00 Weeks of gestation of pregnancy not specified
CPT/HCPCS: 59025; 99211

== ENCOUNTER 2025-02-14 12:15 | Outpatient (CLI) | payer MEDICAID, SELFPAY ==
[2025-02-14 12:39] VITALS: BP 125/81; PULSE 83
[2025-02-14 12:50] VITALS: RESP 16; TEMP 36.7; BMI 37.1
== END 2025-02-14 15:31 | disposition home or self-care (01) ==
LOC: OPOB 12:16 → OBGYN 12:16
PROVIDERS: PCP Family Medicine; Visit Provider Family Medicine
DX: O26.899 Other specified pregnancy related conditions, unspecified trimester (principal); Z3A.00 Weeks of gestation of pregnancy not specified; R10.9 Unspecified abdominal pain
CPT/HCPCS: 59025; 99211

== ENCOUNTER 2025-02-19 23:00 | Inpatient (IN) | payer MEDICAID, SELFPAY ==
[2025-02-19 20:45] VITALS: BMI 36.3
[2025-02-19 20:56] VITALS: BP 121/86; PULSE 95
[2025-02-19 21:11] VITALS: BP 129/71; PULSE 81
[2025-02-19 21:26] VITALS: BP 117/69; PULSE 90
[2025-02-19 21:48] VITALS: RESP 16
[2025-02-19 21:59] LABS: Hematocrit 31.9 % (36-47); Hemoglobin 9.60 g/dL (11.27-16.99); Mean Corpuscular HGB Conc 30.1 g/dL (30-55); Mean Corpuscular Hemoglobin 22.6 pg (27-33); Mean Corpuscular Volume 75.1 fl (85-98); Nucleated Red Blood Cells % 0 %; Platelet Count 326 10^3/cmm (157-399); Red Blood Count 4.25 10^6/uL (3.85-5.65); White Blood Count 12.63 10^3/uL (3.29-11.43)
[2025-02-19 23:01] VITALS: BP 118/70; PULSE 76
[2025-02-19 23:17] VITALS: BP 117/75; PULSE 78
[2025-02-20] VITALS (24 sets, daily range): BP systolic 109–143; BP diastolic 59–91; PULSE 68–103; RESP 15–17; TEMP 36.4–36.9; O2SAT 96–100
[2025-02-20] MEDS: oxytocin 30 UNIT/500 ML BAG 600 UNIT IV (02:12)
[2025-02-20] MEDS: lidocaine 2% INJ 20 mL INJECTION (02:29)
--- NOTE | 2025-02-20 02:46 | PM.OPHPUD ---
Labor & Delivery H&P Update Date of Procedure: February 20, 2025 Date H&P Performed: 02/19/25 Changes to previous documentation: The patient demonstrated cervical change with consistent contractions Admission Diagnosis: 39-year-old 2 para 1-0-0-1 at 38 weeks estimated gestational age Other information: The patient is an otherwise healthy 39-year-old female with a history of incompetent cervix with cerclage who presented to the hospital in active labor. Other than having a cerclage placed and then removed at 36 weeks, her has had no other issues. Her blood type is O+. Her antibody screen is negative HIV negative declined Chlamydia gonorrhea RPR is negative drug screen was negative she was GBS negative she passed her glucose screen. She is rubella immune. And hep C and hep B negative Related Problem List Diagnoses 1. 38 weeks gestation of : 2. History of cerclage, currently : A&P Assessment and plan 1. 38 weeks gestation of : I anticipate routine labor and delivery. Status: Acute 2. History of cerclage, currently : Status: Acute PDMP PDMP Reviewed: Not Reviewed
--- NOTE | 2025-02-20 02:52 | PM.DELIVERY ---
Delivery Note: Date of delivery: February 20, 2025 Pre-delivery diagnoses: 39-year-old 3 para 1-0-1-1 at 38 weeks estimated stational age presenting in active labor Post-delivery diagnoses: Status post spontaneous vaginal delivery Procedure: Spontaneous vaginal delivery Delivering Physician: Chandana Alvarez Estimated blood loss (mL): 150 Pre-Delivery Course: The patient presented to the hospital in active labor. Initially she was having somewhat sporadic contractions. She was found to be 5 cm and was dilated. Due to her history of incompetent cervix, and some cervical change since my office earlier in the day we elected to keep her. heart tones were within normal limits. Her contractions gradually increased. She then went from 5 cm to a lip within an hour. Delivery: DELIVERY: The patient progressed to complete without difficulty. She delivered a male with a weight of 6 pounds 11 ounces with Apgars of 10, 10. The baby was delivered from the ARIC position and placed on the mother's abdomen. The cord was then clamped and cut about 1 minute after delivery. There was no nuchal cord. There was no meconium. The placenta and 3 vessel cord were delivered intact shortly thereafter. The perineum and vaginal vault were carefully examined. A second-degree posterior midline tear was noted. It was repaired with 3-0 Vicryl after anesthetizing the area with 1% lidocaine both the mother and the baby were in stable condition. Post-Delivery Status: Good History History History 3 Term 1 0 Miscarriages/Ectopic 1 Living Children 1 A&P Assessment and plan 1. 38 weeks gestation of : I anticipate routine care. 2. Spontaneous vaginal delivery: PDMP PDMP Reviewed: Not Reviewed Coding Level of Care Code Acute Code for Chg Fwd Diagnoses 38 weeks gestation of Z3A.38 Spontaneous vaginal delivery O80
[2025-02-20] MEDS: HYDROcodone-acetaminophen 5-325 mg Tablet PO (03:42)
--- NOTE | 2025-02-20 04:00 | PC.NURSE ---
At 0345 fundal rub fundus was firm with moderate bleeding and small clots. upon massage larger clots were passed (quarter sized) and uterus became boggy after clots had passed. Dr. Alvarez was contacted and orders were given for TXA and rectal cytotec 800mcg. Rectal cytotec was placed, txa was ordered, and uterus became firm with massage and bleeding slowed. Chux were weighed 80ml was ebl at the time.
[2025-02-20] MEDS: tranexamic acid 1,000 MG/100 ML PREMIX 600 MG IV (04:12)
[2025-02-20] MEDS: benzocaine-menthol 78 gm Canister 1 SPRAY TOPICAL (05:18)
[2025-02-20] MEDS: PRENATAL VIT NO.130/IRON/FOLIC 1 EACH TABLET PO (08:13)
[2025-02-20 14:41] LABS: Hematocrit 29.4 % (36-47); Hemoglobin 9.00 g/dL (11.27-16.99); Mean Corpuscular HGB Conc 30.6 g/dL (30-55); Mean Corpuscular Hemoglobin 23.4 pg (27-33); Mean Corpuscular Volume 76.4 fl (85-98); Platelet Count 282 10^3/cmm (157-399); Red Blood Count 3.85 10^6/uL (3.85-5.65); White Blood Count 12.52 10^3/uL (3.29-11.43)
[2025-02-21 05:24] VITALS: BP 120/85; PULSE 80; RESP 15; TEMP 36.6; O2SAT 98
--- NOTE | 2025-02-21 06:24 | PM.OBGYDC ---
Discharge Providers MILK SAMPLER Date of Admission: 02/19/25 23:00 Date of Discharge: 03/05/25 Attending Provider at Admission: Chandana Alvarez MD Attending Provider at Discharge: Chandana Alvarez MD Primary Care Provider: Chandana Alvarez MD Diagnoses at Discharge Discharge Diagnosis 1. 38 weeks gestation of : 2. Spontaneous vaginal delivery: Reason for Visit Reason for Visit: ctx Hospital Course Hospital Course The patient presented to the hospital in active labor. She progressed to complete and had an unremarkable delivery of a healthy male infant. Her course has been unremarkable. Her bleeding has been within normal limits. Her pain has been well-controlled. There have been no concerns. Information Peripartum Data: Delivery Method: Vaginal Physical Exam Narrative: The patient is alert. She appears comfortable. Her heart has a regular rate and rhythm with no murmurs appreciated. Lungs are clear to auscultation bilaterally. Her fundus is firm and below the umbilicus. History History History 3 Term 1 0 Miscarriages/Ectopic 1 Living Children 1 Discharge Data Studies Completed and Pending Laboratory Results WBC 12.52 10^3/uL (3.29-11.43) H 02/20/25 14:36 RBC 3.85 10^6/uL (3.85-5.65) 02/20/25 14:36 Hgb 9.00 g/dL (11.27-16.99) L 02/20/25 14:36 Hct 29.4 % (36-47) L 02/20/25 14:36 MCV 76.4 fl (85-98) L 02/20/25 14:36 MCH 23.4 pg (27-33) L 02/20/25 14:36 MCHC 30.6 g/dL (30-55) 02/20/25 14:36 RDW 15.9 % (12.1-15.1) H 02/20/25 14:36 Plt Count 282 10^3/cmm (157-399) 02/20/25 14:36 MPV 10.3 fL (7.4-10.4) 02/20/25 14:36 Neut % (Auto) 76.4 % 02/19/25 21:51 Lymph % (Auto) 16.3 % 02/19/25 21:51 Moore % (Auto) 6.2 % 02/19/25 21:51 Eos % (Auto) 0.3 % 02/19/25 21:51 Baso % (Auto) 0.3 % 02/19/25 21:51 Neut # (Auto) 9.65 10^3/uL (1.8-7.7) H 02/19/25 21:51 Lymph # (Auto) 2.1 10^3/uL (0.8-4.8) 02/19/25 21:51 Moore # (Auto) 0.8 10^3/uL (0.2-0.9) 02/19/25 21:51 Eos # (Auto) 0.0 10^3/uL (0.0-0.8) 02/19/25 21:51 Baso # (Auto) 0.0 10^3/uL (0.0-0.1) 02/19/25 21:51 Nucleated RBC % (auto) 0 % 02/19/25 21:51 Nucleated RBCs # 0.0 /100WBC 02/19/25 21:51 Blood Type O Positive 02/19/25 21:51 Rho(D) Type Rh positive 02/19/25 21:51 Antibody Screen Negative 02/19/25 21:51 Vitals Last Vital Signs Temp 97.9 F 02/21/25 05:24 Pulse 80 02/21/25 05:24 Resp 15 02/21/25 05:24 BP 120/85 02/21/25 05:24 Pulse Ox 98 02/21/25 05:24 O2 Del Method Room Air 02/21/25 05:24 Results Labs OB ([facility]): Obstetrics US 07/21/24 Blood Type O Positive 02/19/25 Antibody Screen Negative 02/19/25 Hct, (36-47) 29.4 % L 02/20/25 Hgb, (11.27-16.99) 9.00 g/dL L 02/20/25 Rho(D) Type Rh positive 02/19/25 Plt Count, (157-399) 282 10^3/cmm 02/20/25 Hep Bs Antigen, (Nonreactive) Non-reactive 08/12/24 Hepatitis C Antibody, (Nonreactive) Non-reactive 08/12/24 Rubella IgG Antibody, (0.0-10.0) 247.0 IU/mL H 08/12/24 RPR, (Nonreactive) Nonreactive 08/12/24 HIV 1&2 Ab & HIV 1 Ag, (Non-Reactiv) Non-reactive 08/12/24 TSH, (0.27-4.20) 1.73 uIU/mL 08/12/24 Ser , Semi-Qnt 65760.00 mIU/mL 07/15/24 HCG, Qual, (Negative) Positive H 07/15/24 Urine Opiates Screen, (Negative) Negative ng/mL 08/12/24 Ur Barbiturates Screen, (Negative) Negative ng/mL 08/12/24 Ur Phencyclidine Scrn, (Negative) Negative ng/mL 08/12/24 Ur Amphetamines Screen, (Negative) Negative ng/mL 08/12/24 U Benzodiazepines Scrn, (Negative) Negative ng/mL 08/12/24 Urine Cocaine Screen, (Negative) Negative ng/mL 08/12/24 U Marijuana (THC) Screen, (Negative) Negative ng/mL 08/12/24 Micro Urine Specimen 08/12/24 Discharge Plan Discharge Patient Disposition: Home Condition: Stable Prescriptions: New ibuprofen 800 mg Tablet 800 mg PO TID Qty: 45 0RF Continued prenat.vits,anu,[id number]-xqvv-shnir Tablet 1 tab PO DAILY Discharge Order = DC NOW: Discharge Order (Routine); Ordered 02/21/25 Ordered By: Chandana Alvarez Referrals: Chandana Alvarez MD [Primary Care Provider, [facility]] - 6 Weeks Referral Note: Please call Sunday to set up a follow up appointment with Dr. Alvarez in 6 weeks. Discharge Diet: Usual diet Discharge Activity: Limit activity as instructed Patient Instructions: Bleeding (DC), Preeclampsia and Eclampsia After Delivery (GEN), Hemorrhage (DC), OB Discharge Report, OB Food/Drug Interaction Guide, OB Care at Home, Opioid Safety, OB Home Care, Patient Portal & Lizbeth Instructions Discharge Attestations MILK SAMPLER Time Spent in Discharge Care*: less than 30 min Coding Level of Care Code Acute Code for Chg Fwd Diagnoses 38 weeks gestation of Z3A.38 Spontaneous vaginal delivery O80
[2025-02-21 07:00] VITALS: BP 127/86; PULSE 86; RESP 17; TEMP 36.7
[2025-02-21 09:53] VITALS: BP 118/77; PULSE 80; RESP 17; TEMP 36.8; O2SAT 98
== END 2025-02-21 09:53 | disposition home or self-care (01) | DRG 807 ==
LOC: OPOB 02-20 02:03 → OBGYN 02-20 02:03
PROVIDERS: Admitting Provider Family Medicine; PCP Family Medicine; Visit Provider Family Medicine
DX: O70.1 Second degree perineal laceration during delivery (principal); Z37.0 Single live birth; Z3A.38 38 weeks gestation of pregnancy; Z87.59 Personal history of other complications of pregnancy, childbirth and the puerperium
CPT/HCPCS: 36415; 59025; 59409; 85025; 85027; 86850; 86900; 99211; J2590; J7030; J9999